=== PATIENT | male | born 1950 | race Caucasian/White ===

== ENCOUNTER 2017-05-23 12:23 | Inpatient (IN) | payer MEDICARE, OTHER ==
[2017-05-23 12:56] LABS: #Basophils 0.1 thou/uL (0.0-0.2); #Eosinphils 0.1 thou/uL (0.0-0.7); #Lymphocytes 1.6 thou/uL (1.20-3.40); #Monocytes 0.7 thou/uL (0.11-0.59); #Neutrophils 2.9 thou/uL (1.40-6.50); %Basophils 1.5 % (0.0-1.0); %Eosinophils 1.7 % (0.0-10.0); %Lymphocytes 29.4 % (21.0-51.0); %Monocytes 12.4 % (0.0-10.0); Hematocrit 50.1 % (42.0-52.0); Mean Platelet Volume 7.1 fL (7.4-10.4); Red Blood Cell (RBC) Count 5.29 mill/uL (4.70-6.10); White Blood Cell (WBC) Count 5.3 thou/uL (4.8-10.8)
[2017-05-23 13:06] LABS: PTT 29.1 SEC (22.9-36.1); Prothrombin Time 12.3 SEC (12.0-14.7)
--- NOTE | 2017-05-23 13:19 | CT ---
CT BRAIN: HISTORY: Facial drooping. TECHNIQUE: Noncontrast enhanced CT images of the brain are obtained from the base of the skull to the vertex. Brain and bone windows are obtained. FINDINGS: The brain is unremarkable. No evidence of intracranial masses, hemorrhages, strokes, or contusions seen. There does appear to be an area of asymmetric CSF density at the right cerebellar pontine angle and just lateral to it. This measures approximately 16 x 45 mm. This may represent a possible right-si ded arachnoid cyst. The rest of the brain is unremarkable. No other significant acute abnormality is noted. IMPRESSION: Right posterior fossa area of asymmetric cerebrospinal fluid density, possibly representing an arach noid cyst. Other possibilities in the differential diagnosis could include an epidermoid. This can be confirmed using an MRI. No other significant abnormalities seen. POS: LISA
[2017-05-23 13:24] LABS: ALT (SGPT) 14 U/L (8-55); AST (SGOT) 20 U/L (5-34); Alkaline Phosphatase 59 U/L (40-150); Anion Gap 16 mmol/L (10-20); BUN (Urea Nitrogen) 12 mg/dL (8.4-25.7); Bilirubin, Total 0.6 mg/dL (0.2-1.2); CK (CPK) 112 U/L (30-200); Calc. Creatinine Clearance 0 mL/min (70-130); Calcium 9.4 mg/dL (7.8-10.44); Carbon Dioxide 24 mmol/L (23-31); Chloride 100 mmol/L (98-107); Estimated GFR-MDRD 81; Globulin 3.3 g/dL (2.4-3.5); Protein, Total 7.7 g/dL (5.8-8.1)
[2017-05-23 13:26] LABS: Troponin I 0.012 ng/mL (< 0.028)
[2017-05-23] MEDS ORDERED: Artificial Tears 18 DROP/0.9 ML L EYE SCH (15:45)
[2017-05-23 15:53] VITALS: BMI 26.2
[2017-05-23] MEDS ORDERED: Acetaminophen 325 MG TAB PO PRN (16:43)
[2017-05-23] MEDS ORDERED: Ondansetron ODT 4 MG TAB SL PRN (16:43)
[2017-05-23] MEDS ORDERED: Ondansetron HCl/PF 4 MG/2 ML Vial IVP PRN (16:43)
[2017-05-23] MEDS ORDERED: FLU VACC TS2017-18 (>65YR) 0.5 ML SYRINGE IM ONE (17:45)
[2017-05-23] MEDS ORDERED: Finasteride 5 MG TAB PO SCH (21:00)
[2017-05-23] MEDS ORDERED: Pravastatin Sodium 40 MG TAB PO SCH (21:00)
[2017-05-23] MEDS ORDERED: Atorvastatin Calcium 40 MG TAB PO SCH (21:00)
[2017-05-23] MEDS: Olopatadine HCl 100 DROP/5 ML BOT EA EYE SCH (21:12)
[2017-05-23] MEDS: Naproxen 500 MG TAB PO SCH (21:15)
[2017-05-24] MEDS ORDERED: predniSONE 20 MG TAB PO SCH ×2 (00:30→08:00)
[2017-05-24] MEDS ORDERED: ALPRAZolam 0.5 MG TAB PO PRN (00:38)
[2017-05-24] MEDS: Artificial Tears 18 DROP/0.9 ML L EYE SCH ×3 (01:35→08:45)
[2017-05-24 05:29] LABS: #Eosinphils 0.1 thou/uL (0.0-0.7); #Lymphocytes 0.7 thou/uL (1.20-3.40); #Monocytes 0.2 thou/uL (0.11-0.59); #Neutrophils 8.2 thou/uL (1.40-6.50); %Basophils 0.5 % (0.0-1.0); %Eosinophils 0.6 % (0.0-10.0); %Lymphocytes 7.3 % (21.0-51.0); %Monocytes 2.5 % (0.0-10.0); Hematocrit 47.2 % (42.0-52.0); Mean Platelet Volume 7.3 fL (7.4-10.4); Red Blood Cell (RBC) Count 5.01 mill/uL (4.70-6.10); White Blood Cell (WBC) Count 9.2 thou/uL (4.8-10.8)
[2017-05-24 05:50] LABS: Anion Gap 12 mmol/L (10-20); BUN (Urea Nitrogen) 13 mg/dL (8.4-25.7); Calc. Creatinine Clearance 92 mL/min (70-130); Carbon Dioxide 24 mmol/L (23-31); Chloride 100 mmol/L (98-107); Cholesterol 165 mg/dl (< 200 Desired); Estimated GFR-MDRD 90; LDL Cholesterol, Calculated 92 mg/dL
--- NOTE | 2017-05-24 06:00 | HP-2 ---
DATE OF ADMISSION: 05/23/2017 ADMITTING RESIDENT: Dr. Taran Nix. ADMITTING ATTENDING: Dr. Sylvester Rivera. PRIMARY CARE PHYSICIAN: [facility]. CODE STATUS: FULL. CHIEF COMPLAINT: Left-sided facial droop. HISTORY OF PRESENT ILLNESS: A 66-year-old male with a history of hypertension, hyperlipidemia presents with approximately 16 hours of left-sided facial droop. He then woke up the next day and noticed that his face was asymmetric and he was having trouble smiling. He was last seen normal the night before. He stated he was having weakness, difficulty keeping food in his mouth when eating. He said he has had no loss of sensation. He also denies weakness in his arms, legs, trunk. He has not had difficulty speaking. Of note , he complains of left ear fullness for the last 3 days and some left eye redness and irritation for the last 2 days. No sick contacts. In the ER, he was given an aspirin. PAST MEDICAL HISTORY: 1. Hypertension. 2. Hyperlipidemia. 3. Seasonal allergies. PAST SURGICAL HISTORY: Neck surgery in 2010, hernia in 2009, knee arthroscopy in 2010. ALLERGIES: No known drug allergies. MEDICATIONS: 1. Amlodipine/benazepril 5/25 one tablet daily. 2. Pravastatin 40 mg p.o. daily. 3. Finasteride 5 mg p.o. daily. 4. Aspirin 81 mg daily. 5. Singulair 10 mg p.r.n. 6. Flonase 2 sprays per nostril p.r.n. FAMILY HISTORY: 1. Father of prostate cancer. 2. Mother of breast cancer. SOCIAL HISTORY: The patient is a retired head. He is currently . He has a 18-[id number]-[id number] smoking history but quit 20 years ago. Alcohol, he drinks approximately 10-12 drinks per week. Drugs, no recreational drugs. REVIEW OF SYSTEMS: General: Negative for fever and chills, appetite or weight loss. Eyes: Negative for vision changes but positive for eye pain. ENT: Positive for nasal congestion, rhinorrhea, negative for sore throat. Respiratory: No cough, congestion, shortness of breath. Cardiovascular: No chest pain, palpitations. Gastrointestinal: No nausea, vomiting, diarrhea. Genitourinary: No incontinence, dysuria. Skin: No rashes or lesions. Musculoskeletal: No pain or tenderness. Neurologic: Positive for weakness but negative for numbness, syncope, or seizure. Psychiatric: Negative for anxiety and depression. PHYSICAL EXAMINATION: VITAL SIGNS: Blood pressure 130/59, pulse 80, respiratory rate 16, T-max 98.0, pulse ox 95% on room air. GENERAL: The patient is alert and oriented x4, in no acute distress, well developed, and appropriately interactive. HEENT: Eyes are PERRLA, EOMI but some redness in the left conjunctiva was noted. No significant drainage. ENT showed normal tympanic membranes. Nasal mucosa showed some clear drainage. Oropharynx was within normal limits. Drainage of the nose was mucousy. NECK: Supple, without lymphadenopathy or thyromegaly. CARDIOVASCULAR: Regular rate and rhythm without murmurs or gallops. Radial pulses 2+, pedal pulses 2+. RESPIRATORY: Normal effort without retractions. Clear to auscultation bilaterally. SKIN: Warm and dry without cyanosis or lesions. ABDOMEN: Soft, nontender to palpation. Bowel sounds x4. EXTREMITIES: No clubbing, cyanosis, or edema. MUSCULOSKELETAL: Structure and tone within normal limits. NEUROLOGIC: Focal deficit was noted with left-sided facial weakness. There was weakness of the muscles controlling the lips with an obvious asymmetric smile, inability to raise the nare. Left eyebrow was able to be raised slightly but was obviously asymmetric to the right. There is no right-sided facial weakness. Otherwise, cranial nerve exam was normal. The patient has normal strength in the shoulders and extension and flexion of the arm, normal strength in flexion and extension of the legs and ankles. Sensation was normal throughout. DTRs 2+. The patient had normal speech and gait. LABORATORY DATA: White blood cell count 5.3, hemoglobin 16.2, hematocrit 50.1, platelets 227,000. Sodium 136, potassium 4.1, chloride 100, bicarbonate 24, BUN 12, creatinine 0.93, glucose 99, albumin 4.4, total protein 7.7, AST 14, ALT 20. Troponin 0.012. EKG was normal sinus rhythm without any signs of ischemia. IMAGING: Brain CT showed no hemorrhagic stroke but did show arachnoid cyst, possibly noted in the right posterior fossa. ASSESSMENT AND PLAN: A 66-year-old male with left-sided facial weakness. 1. Cerebrovascular accident versus Fletcher's palsy. The patient has persistent weakness, but he is very consistent with Fletcher's palsy except for slight strength in the left upper eyebrow. This exam finding creates some clinical uncertainty and justifies the patient's workup because this could be a cerebrovascular event instead of Fletcher's palsy. He was out of the window for any TPA. He had normal cranial nerve exam other than facial weakness. We will order MRI to evaluate for cerebrovascular accident. We will initiate the rest of the cerebrovascular accident workup if as positive including echocardiogram, carotid Dopplers, consulting Neurology and Stroke Team. If MRI is negative, we will treat as Fletcher's palsy. 2. Hyperlipidemia. Continue pravastatin. 3. Hypertension. 24 hours of permissive hypertension will be complete the day after admission and so the patient will restart home hypertensive medications at that time. 4. Viral conjunctivitis. The patient's left eye redness and irritation are consistent with viral conjunctivitis. We will try antihistamine eye drops for analgesia. History and physical exam, as well as management, discussed with Dr. Sylvester Rivera who is in agreement. MIHIR
--- NOTE | 2017-05-24 07:55 | PDOC.FM ---
- Subjective Subjective: Patient states he did not get any rest over night. He denies chest pain, sob, n/ v/d, fever, chills, or cough. He denies any vision changes. He would like to go home as soon as possible after his MRI is done. His MRI is dependent upon the plate that he has in his neck. His symptoms of left facial droop are consistent with yesterday. - Objective Vital Signs & Weight: Vital Signs (12 hours) Temp Pulse Resp BP Pulse Ox 05/24/17 03:44 97.5 F L 62 16 135/70 94 L 05/23/17 23:18 97.6 F 60 16 143/70 H 95 05/23/17 20:55 99.0 F 69 18 94 L Weight Weight 78.154 kg Result Diagrams: 05/24/17 04:55 05/24/17 04:55 <Seymour Peguero - Last Filed: 05/24/17 07:53> - Objective Vital Signs & Weight: Weight Weight 78.154 kg Result Diagrams: 05/24/17 04:55 05/24/17 04:55 <Brian Ladd - Last Filed: 05/26/17 14:04> Phys Exam - Physical Examination HEENT: PERRLA Sclera is injected. Neck: no nodes, no JVD, supple Respiratory: no wheezing, clear to auscultation bilateral Cardiovascular: RRR, no significant murmur Gastrointestinal: soft, non-tender, no distention, positive bowel sounds Musculoskeletal: no edema, pulses present Neurological: normal sensation, moves all 4 limbs Sensation on face is intact. L facial droop. 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 -Continue ASA, rule out CVA with MRI (2) HTN (hypertension) Code(s): I10 - ESSENTIAL (PRIMARY) HYPERTENSION Status: Acute Plan: Held home meds until MRI is finished. (3) HLD (hyperlipidemia) Code(s): E78.5 - HYPERLIPIDEMIA, UNSPECIFIED Status: Acute Plan: -Continue statin. - Plan Plan: If MRI normal patient can be discharged today. <Seymour Peguero - Last Filed: 05/24/17 07:53> Attending Addendum - Attending Addendum I personally evaluated the patient and discussed the management with Dr. Peguero. I agree with the History, Examination, Assessment and Plan documented above with any addition or exceptions noted below. Complains of about 3 days of left facial weakness, left eyelid weakness and full sensation in L-ear. Clincal exam shows significant but incomplete facial weakness both above and below the eye. He can just barely close the left eyelid and can raise left eyebrow but not as much as the right. He has conjunctival injection consistent with a viral conjunctivitis OS. MRI is negative for stroke. 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 P: D/C home on Prednisone 60 mg daily for 5 days. F/U with PCP. Use lubricating drops prn. [facility] <Brian Ladd - Last Filed: 05/26/17 14:04>
[2017-05-24 07:57] VITALS: BP 109/68; TEMP 97.9
[2017-05-24] MEDS: Naproxen 500 MG TAB PO SCH (08:43)
[2017-05-24] MEDS: Olopatadine HCl 100 DROP/5 ML BOT EA EYE SCH (08:46)
[2017-05-24] MEDS ORDERED: Aspirin 325 mg Enteric Coated Tablet PO SCH (09:00)
[2017-05-24] MEDS ORDERED: BENAZEPRIL PO SCH (09:00)
[2017-05-24] MEDS ORDERED: Finasteride 5 MG TAB PO SCH (09:00)
[2017-05-24] MEDS ORDERED: AMLODIPINE BESYLATE PO SCH (09:00)
--- NOTE | 2017-05-24 10:23 | MRI ---
MRI BRAIN WITHOUT CONTRAST: HISTORY: TIA, facial drooping. FINDINGS: Correlation is made with the previous day's CT scan. No restricted diffusion is seen. The asymmetric CSF density fluid collection in the right side of t he posterior fossa is consistent with an arachnoid cyst. Absence of restricted diffusion confirms t hat this is not an epidermoid. No evidence of infract, hemorrhage, or midline shift is seen. The v entricular size is appropriate and the basilar cisterns are patent. There are multiple foci of T2 p rolongation in the periventricular white matter. There is mucosal disease in the paranasal sinuses. IMPRESSION: 1. No acute process. 2. Chronic small-vessel ischemic disease. 3. Right-sided arachnoid cyst in the posterior fossa. POS: LISA
--- NOTE | 2017-05-24 20:59 | DIS-2 ---
DATE OF ADMISSION: 05/23/2017 DATE OF DISCHARGE: 05/24/2017 RESIDENT: Dr. Peguero. ADMITTING ATTENDING: Dr. Rivera. DISCHARGE ATTENDING: Dr. Ladd. CONSULTS: None. PROCEDURES: None. PRIMARY DIAGNOSIS: Fletcher's palsy. SECONDARY DIAGNOSES: 1. Hypertension. 2. Hyperlipidemia. DISCHARGE MEDICATIONS: 1. Amlodipine and benazepril 5/20 mg. 2. Pravastatin 40 mg. 3. Naproxen 500mg. 4. Finasteride 5 mg. 5. Prednisone 60 mg. DISCONTINUED MEDICATIONS: None. HISTORY OF PRESENT ILLNESS AND HOSPITAL COURSE: This is a 66-year-old male with a history of hypertension, hyperlipidemia that presents with approximately 16 hours of left-sided facial droo p. He then woke up the next day and then noticed his face was asymmetric and he was having trouble smiling. He was last seen normal the night before. He stated he was having weakness, difficulty ke eping food in his mouth when eating. He said he has had no loss of sensation. He also denies weakn ess in his arms, legs, and trunk. He has not had any difficulty speaking. Of note, he complains of left ear fullness for the last 3 days and some left eye redness and irritation for the last 2 days. He has had no sick contacts. In the ER, he was given an aspirin. The patient had a CT scan that was negative for any acute abnormality, but did show an arachnoid cyst. So, further evaluation was sought. The patient was then taken and he had an MRI during the hospitalization that came back as n o acute abnormality, but did note the arachnoid cyst as well. The radiology did not give any inform ation as far as followup for the cyst. So, the patient was given a working diagnosis of Fletcher's pals y and will be treated accordingly. He otherwise tolerated the hospitalization well, had no complica tions and had a significant lab values for his fasting lipid panel showed triglycerides at 91, total cholesterol of 165, LDL of 92 and HDL of 55. The patient was otherwise asymptomatic during hospita lization. The weakness of symptoms stayed throughout his hospitalization, kind of defined to his lo wer left face. He never had any change in sensation with a small improvement in his symptoms. He w ill be treated with prednisone as an outpatient as per the guidelines for Fletcher's palsy treatment. H e is encouraged to follow up with his primary care physician in the coming days to ensure resolution of the symptoms is on track. DISPOSITION: Stable. DISCHARGE INSTRUCTIONS: 1. Location: Will be discharged home into his own care. 2. Diet: Will be as tolerated. No restrictions. 3. Activity. Will be as tolerated with no restrictions. 4. Follow up: Will be with [facility] in 1 week, to follow up with his Fletcher's palsy an d then he can also have further discussion with the finding of the arachnoid cyst harming his brain. Radiology did not recommend any further imaging or intervention and that will probably stand going forward, but is definitely worth a discussion going forward. We wish him the best of luck and hope he has no further problems.
== END 2017-05-24 11:10 | disposition home or self-care (01) | DRG 74 ==
LOC: ERS 12:23 → 2SE 14:25
PROVIDERS: ADMIT Family Medicine; ATTEND Family Medicine
DX: G51.0 Bell's palsy (principal); R47.01 Aphasia; I10 Essential (primary) hypertension; Z87.891 Personal history of nicotine dependence; E78.5 Hyperlipidemia, unspecified; B30.9 Viral conjunctivitis, unspecified; G93.0 Cerebral cysts
CPT/HCPCS: 36415; 70450; 70551; 80048; 80053; 80061; 82550; 82553; 84484; 85025; 85610; 85730; 90471; 90682; 93005; 94760; G0008; J7506; Q2036

== ENCOUNTER 2018-09-10 10:55 | Outpatient (CLI) | payer MEDICARE ==
--- NOTE | 2018-09-10 12:36 | RAD ---
PA AND LATERAL CHEST: History: Pneumonia. FINDINGS: The heart size is normal. The aorta is tortuous. The lungs are well expanded without focal areas of c onsolidation, pneumothoraces or pleural effusions. There are old right sided rib fractures. Degenerat erma changes are present in the spine. IMPRESSION: No radiographic evidence of acute cardiopulmonary process. POS: OFF
== END 2018-09-10 10:56 | disposition home or self-care (01) ==
LOC: BICRAD 10:55
PROVIDERS: ATTEND Family Medicine
DX: J18.9 Pneumonia, unspecified organism (principal)
CPT/HCPCS: 71046

== ENCOUNTER 2021-02-11 06:46 | Outpatient (CLI) | payer MEDICARE | END 2021-02-11 06:47 | disposition home or self-care (01) | LOC: BICMRI 06:46 | PROVIDERS: ATTEND Family Medicine | DX: M75.41 Impingement syndrome of right shoulder (principal); M75.101 Unspecified rotator cuff tear or rupture of right shoulder, not specified as traumatic; M19.011 Primary osteoarthritis, right shoulder ==

== ENCOUNTER 2022-05-26 08:49 | Outpatient (CLI) | payer MEDICARE, OTHER ==
[2022-05-26] MEDS ORDERED: Iopamidol-370 76% 500 ML 1 ML ONE (09:22)
== END 2022-05-26 08:50 | disposition home or self-care (01) ==
LOC: BICCT 08:49
PROVIDERS: ATTEND Physician Assistant Medical
DX: K52.9 Noninfective gastroenteritis and colitis, unspecified (principal)
CPT/HCPCS: 74177; 82565; Q9967

== ENCOUNTER 2025-06-02 13:48 | Outpatient (CLI) | payer OTHER | END 2025-06-02 13:49 | disposition home or self-care (01) | LOC: BICMRI 13:48 | PROVIDERS: ATTEND Family Medicine Sports Medicine | DX: M47.26 Other spondylosis with radiculopathy, lumbar region (principal); M48.061 Spinal stenosis, lumbar region without neurogenic claudication; M48.07 Spinal stenosis, lumbosacral region | CPT/HCPCS: 72148 ==